=== PATIENT | male | born 1965 | race African-American/Black ===

== ENCOUNTER 2020-11-29 18:55 | Emergency (ER) | payer OTHER ==
[~2020-11-29] VITALS: Ht 177.8 cm; Wt 75.0 kg
[2020-11-29] MEDS ORDERED: ACETAMINOPHEN 500 MG TABLET PO ONE (19:45)
[2020-11-29] MEDS ORDERED: KETOROLAC TROMETHAMINE 30 MG/ML VIAL IM ONE (19:45)
[2020-11-29] MEDS ORDERED: DICLOFENAC SODIUM 1% 100 GM GEL [4GM] TP ONE (19:45)
[2020-11-29] MEDS ORDERED: DIAZEPAM 5 MG TABLET PO ONE (19:45)
[2020-11-29] MEDS ORDERED: LIDOCAINE 5% TRANSDERMAL PATCH TD ONE (20:15)
[2020-11-29 21:06] VITALS: BP 155/92
== END 2020-11-29 21:23 | disposition home or self-care (01) ==
LOC: EMS 18:55
DX: M25.551 Pain in right hip (principal)
CPT/HCPCS: 72170; 96372; 99284; J1885